=== PATIENT | male | born 1940 | race Caucasian/White ===

== ENCOUNTER → 2017-09-17 | Outpatient (CLI) | payer MEDICARE, BC ==
[~2017-09-17] MED LIST: ASPIR-LOW81 MG PO; KLONOPIN 1MG1 MG PO; NEPHRO-VITE1 TA1 PO; WELLBUTRIN SR150 M1 PO; ZITHROMAX Z PA250 MG PO
== END ==
LOC: SUN.DIA 10:50
DX: E11.40 Type 2 diabetes mellitus with diabetic neuropathy, unspecified (principal); E66.9 Obesity, unspecified; Z68.36 Body mass index [BMI] 36.0-36.9, adult; Z71.3 Dietary counseling and surveillance; Z87.891 Personal history of nicotine dependence
CPT/HCPCS: G0108

== ENCOUNTER → 2017-09-26 | Outpatient (CLI) | payer MEDICARE, BC | LOC: SUN.DIA 09:33 | DX: E11.40 Type 2 diabetes mellitus with diabetic neuropathy, unspecified (principal); E66.9 Obesity, unspecified; Z71.3 Dietary counseling and surveillance ==

== ENCOUNTER → 2017-10-24 | Outpatient (CLI) | payer MEDICARE, BC | LOC: SUN.DIA 15:23 | DX: E11.40 Type 2 diabetes mellitus with diabetic neuropathy, unspecified (principal); E66.9 Obesity, unspecified; Z71.3 Dietary counseling and surveillance | CPT/HCPCS: G0109 ==

== ENCOUNTER → 2017-10-31 | Outpatient (CLI) | payer MEDICARE, BC | LOC: SUN.DIA 09:59 | DX: E11.40 Type 2 diabetes mellitus with diabetic neuropathy, unspecified (principal); E66.9 Obesity, unspecified; Z71.3 Dietary counseling and surveillance | CPT/HCPCS: G0109 ==

== ENCOUNTER → 2017-11-07 | Outpatient (CLI) | payer MEDICARE, BC | LOC: SUN.DIA 11-06 10:45 | DX: E11.40 Type 2 diabetes mellitus with diabetic neuropathy, unspecified (principal); E66.9 Obesity, unspecified; Z71.3 Dietary counseling and surveillance | CPT/HCPCS: G0109 ==

== ENCOUNTER → 2017-11-14 | Outpatient (CLI) | payer MEDICARE, BC | LOC: SUN.DIA 10:59 | DX: E11.40 Type 2 diabetes mellitus with diabetic neuropathy, unspecified (principal); E66.9 Obesity, unspecified; Z71.3 Dietary counseling and surveillance | CPT/HCPCS: G0109 ==

== ENCOUNTER → 2017-12-18 | Outpatient (CLI) | payer MEDICARE, BC | LOC: SUN.DIA 08:47 | DX: E11.40 Type 2 diabetes mellitus with diabetic neuropathy, unspecified (principal); E66.9 Obesity, unspecified; Z68.35 Body mass index [BMI] 35.0-35.9, adult; Z71.3 Dietary counseling and surveillance ==

== ENCOUNTER 2018-05-10 02:31 | Emergency (ER) | payer MEDICARE, BC ==
[~2018-05-10] VITALS: Ht 175.3 cm; Wt 104.5 kg
[~2018-05-10 02:31] MED LIST changes: +CEFTIN500 MG PO; +DESYREL DIVIDO150 M1 PO; +FLOMAX 0.40.4 MG/CAP PO; +GLUCOPHAGE500 MG/TAB PO; +LEXAPRO20 MG PO; +VITAMIN B COMPL1 SGL PO; +XTANDI40 MG PO; +ZOCOR 20MG20 MG PO
[2018-05-10 02:34] VITALS: TEMP 98.8
[2018-05-10 03:09] LABS: COLLECTION METHOD CATHETER
[2018-05-10] MEDS ORDERED: ZOCOR 20MG20 MG PO (03:09)
[2018-05-10] MEDS ORDERED: DESYREL DIVIDO150 M1 PO (03:09)
[2018-05-10] MEDS ORDERED: ZYRTEC 10MG10 MG PO (03:10)
[2018-05-10 03:11] LABS: BASO % 0.5 % (0.0-2.0); EOS # 0.1 (0.0-0.7); EOS % 1.8 % (0-4.0); GRAN # 5.1 (1.4-6.5); GRAN % 78.2 % (42.2-75.2); HEMATOCRIT 37.1 % (42.0-52.0); HEMOGLOBIN 12.8 g/dl (13.5-18.0); LYMPH # 0.7 (1.2-3.4); LYMPH % 10.9 % (20.0-51.0); MEAN CELL VOLUME 90 fl (80.0-100.0); MEAN CORPUSCULAR HEMOGLOBIN 31 pg (27.0-31.0); MEAN CORPUSCULAR HGB CONC 35 g/dl (33.0-37.0); MEAN PLATELET VOLUME 10.2 fl (7.4-10.4); MONO # 0.5 (0.1-0.6); MONO % 7.4 % (1.7-9.3); PLATELET COUNT 209 K/mm3 (130-400); RED BLOOD COUNT 4.11 M/mm3 (4.20-5.60); REDCELL DISTRIBUTION WIDTH-CV 12.6 % (11.5-14.5)
[2018-05-10] MEDS ORDERED: CALCIUM CARBON650 M2 PO (03:11)
[2018-05-10] MEDS ORDERED: ASPIRIN 81M81 MG/TA2 PO (03:12)
[2018-05-10 03:13] VITALS: BP 121/56; PULSE 58
[2018-05-10 03:22] LABS: PH 6 (5-8); SQUAMOUS EPITHELIAL None Seen /hpf; URINE APPEARANCE Hazy; URINE BACTERIA None Seen /hpf; URINE BILIRUBIN Negative (NEGATIVE); URINE BLOOD 3+ (NEGATIVE); URINE COLOR Yellow; URINE GLUCOSE 1+ (NEGATIVE); URINE KETONE Negative (NEGATIVE); URINE LEUKOCYTE ESTERASE Negative (NEGATIVE); URINE NITRATE Negative (NEGATIVE); URINE PROTEIN(semi-quant) 2+ (NEGATIVE); URINE RBC >50 /hpf; URINE UROBILINOGEN Negative (NEGATIVE)
[2018-05-10 03:22] LABS: ALBUMIN 3.6 gm/dL (3.5-5.0); BILIRUBIN,TOTAL 0.4 mg/dL (0.0-1.0); CALCIUM 9.3 mg/dL (8.4-10.2); CREATININE, serum 0.7 mg/dL (0.66-1.25); POTASSIUM 3.8 mmol/L (3.4-5.0); TOTAL PROTEIN 6.9 gm/dL (6.4-8.2)
== END 2018-05-10 03:40 | disposition home or self-care (01) ==
LOC: COL.ER 02:31
PROVIDERS: Nurse Practitioner
DX: R33.9 Retention of urine, unspecified (principal); E11.9 Type 2 diabetes mellitus without complications; Z79.84 Long term (current) use of oral hypoglycemic drugs; Z79.82 Long term (current) use of aspirin; Z85.46 Personal history of malignant neoplasm of prostate; Z87.891 Personal history of nicotine dependence; Z96.0 Presence of urogenital implants

== ENCOUNTER → 2018-06-25 | Outpatient (CLI) | payer MEDICARE, BC ==
[~2018-06-25] MED LIST changes: +ASPIRIN 81M81 MG/TA2 PO; +CALCIUM CARBON650 M2 PO; +ZYRTEC 10MG10 MG PO
== END ==
LOC: SUN.DIA 09:20
DX: E11.40 Type 2 diabetes mellitus with diabetic neuropathy, unspecified (principal); E66.9 Obesity, unspecified

== ENCOUNTER 2020-07-28 16:49 | Observation (INO) | payer MEDICARE, BC ==
[~2020-07-28] VITALS: Ht 177.8 cm; Wt 102.8 kg
[2020-07-28 19:43] LABS: COLLECTION METHOD CATHETER
[2020-07-28 19:47] LABS: HEMATOCRIT 37.1 % (42.0-52.0); HEMOGLOBIN 12.4 g/dl (13.5-18.0); MEAN CELL VOLUME 93 fl (80.0-100.0); MEAN CORPUSCULAR HEMOGLOBIN 31 pg (27.0-31.0); MEAN CORPUSCULAR HGB CONC 33 g/dl (33.0-37.0); PLATELET COUNT 224 K/mm3 (130-400); RED BLOOD COUNT 3.99 M/mm3 (4.20-5.60); REDCELL DISTRIBUTION WIDTH-CV 13.2 % (11.5-14.5)
[2020-07-28 19:49] LABS: PH 5 (5-8); SQUAMOUS EPITHELIAL None Seen /hpf; URINE APPEARANCE Clear; URINE BACTERIA None Seen /hpf; URINE BILIRUBIN Negative (NEGATIVE); URINE BLOOD 2+ (NEGATIVE); URINE COLOR Colorless; URINE GLUCOSE Negative (NEGATIVE); URINE KETONE Negative (NEGATIVE); URINE LEUKOCYTE ESTERASE Negative (NEGATIVE); URINE NITRATE Negative (NEGATIVE); URINE PROTEIN(semi-quant) Negative (NEGATIVE); URINE RBC 0-2 /hpf; URINE UROBILINOGEN Negative (NEGATIVE)
[2020-07-28 20:05] LABS: ALBUMIN 3.9 gm/dL (3.5-5.0); BILIRUBIN,TOTAL 0.4 mg/dL (0.0-1.0); CALCIUM 8.8 mg/dL (8.4-10.2); CREATININE, serum 0.9 (0.66-1.25); POTASSIUM 4.4 mmol/L (3.4-5.0); TOTAL PROTEIN 6.9 gm/dL (6.4-8.2)
[2020-07-28 20:59] LABS: BAND 2 % (0-10); LYMPHOCYTE 4 % (20.0-51.0); METAMYELOCYTE 1 % (0-0); NEUTROPHILS 88 % (42.0-75.2)
[2020-07-28 21:00] LABS: PLATELET ESTIMATE NORMAL (NORMAL)
[2020-07-28 21:58] VITALS: BP 155/82; PULSE 77; TEMP 99.2
--- NOTE | 2020-07-28 22:45 | NUR ---
Pt arrived to surgical unit room 329 at 2200 from ED. Oriented to room, admission assessments and med rec completed. Heart RRR, lungs CTA, A&Ox4. 3-way serna catheter in place with CBI. Output from serna pale yellow and clear. Pt reports moderate pain to groin area, Tylenol administered. Denies needs at this time. Call light in reach. Will continue to monitor.
[2020-07-28 23:33] VITALS: BP 148/66; PULSE 65; TEMP 97.9
[2020-07-29] MEDS ORDERED: ZYTIGA250 MG PO (02:17)
[2020-07-29] MEDS ORDERED: PREDNISONE 5MG5 MG PO (02:19)
[2020-07-29] MEDS ORDERED: VITAMIN C500 MG PO (02:20)
[2020-07-29] MEDS ORDERED: MELATIN 3 MG-11 TAB PO (02:24)
[2020-07-29] MEDS ORDERED: LUPRON DEPOT30 M1 IM (02:26)
[2020-07-29] MEDS ORDERED: VOLTAREN GEL 1%1 TU TP (02:27)
[2020-07-29 03:42] VITALS: BP 130/55; PULSE 65; TEMP 97.7
--- NOTE | 2020-07-29 06:32 | NUR ---
CBI running throughout shift. Started at a faster rate and decreased rate throughout night as pt's serna output was clear. 1025 mls calculated urine output since arrival to unit at 2200 last night. At this time, output is pale yellow and clear. No redness or clots noted throughout night. Pt denies any pressure or discomfort at this time.
[2020-07-29 07:49] VITALS: BP 129/72; PULSE 70; TEMP 98.5
--- NOTE | 2020-07-29 09:30 | NUR ---
Bui catheter has been discontinued. Explained the plan for discharge. Patient verbalized understanding. 30ml removed from catheter balloon. Placed 200ml of saline into bladder from CBI. Patient tolerated well. Explained to use the urinal when he goes. No other changes at this time. Call light within reach.
[2020-07-29 12:25] VITALS: BP 163/73; PULSE 93; TEMP 97.8
--- NOTE | 2020-07-29 14:00 | NUR ---
Patient is voiding without issues. He had a few clots when he first started voiding but his last 3 voids were clear yellow. Discharge instructions discussed with patient. No questions verbalized. INT discontinued. All belongings packed up by patient. Copies of discharge instructions sent with patient. Patient walked out via wheel chair.
--- NOTE | 2020-07-29 14:34 | NUR ---
[facility] [employer] [employer] met with patient to discuss discharge planning. Patient reports he is going to discharge home today and is eager to leave. Patient lives in [place] with his , Isha ([id number]#[phone]) and sees Dr. Feliz for primary care. Patient obtains medications from [facility] with no difficulties. Patient has a CPAP and walker at home, but comments that he does not normally use the walker. Patient is independent with ADLS. Patient states he believes he and his have completed DPOA-HC. Patient plans to return home today with his , Isha providing transportation.
== END 2020-07-29 14:15 | disposition home or self-care (01) ==
LOC: COL.ER 16:49 → JCC 19:04 → EDBEDREQ 21:21 → JCC 07-29 14:15
PROVIDERS: Family Medicine; ADMIT Urology
DX: R31.9 Hematuria, unspecified (principal); R33.9 Retention of urine, unspecified; Z87.891 Personal history of nicotine dependence; Z79.899 Other long term (current) drug therapy; Z85.46 Personal history of malignant neoplasm of prostate; Z92.3 Personal history of irradiation; Z23 Encounter for immunization; Z79.82 Long term (current) use of aspirin
CPT/HCPCS: G0008; J7512

== ENCOUNTER → 2020-11-23 | Outpatient (CLI) | payer MEDICARE, BC ==
[~2020-11-23] MED LIST changes: +LUPRON DEPOT30 M1 IM; +MELATIN 3 MG-11 TAB PO; +PREDNISONE 5MG5 MG PO; +VITAMIN C500 MG PO; +VOLTAREN GEL 1%1 TU TP; +ZYTIGA250 MG PO
== END ==
LOC: COL.RAD 09:25
DX: M25.511 Pain in right shoulder (principal); R06.09 Other forms of dyspnea

== ENCOUNTER → 2020-11-30 | Outpatient (CLI) | payer MEDICARE, BC | LOC: COL.PUL 11:30 | DX: J44.9 Chronic obstructive pulmonary disease, unspecified (principal); Z87.891 Personal history of nicotine dependence ==